=== PATIENT | male | born 1985 | race African-American/Black ===

== ENCOUNTER 2018-07-28 10:09 | Emergency (ER) | payer SELFPAY ==
[2018-07-28] MEDS ORDERED: SOD CHLORIDE 0.9% 1,000 ML IV (11:59)
[2018-07-28] MEDS ORDERED: ONDANSETRON 4 MG INJ IV (11:59)
== END 2018-07-28 12:48 | disposition home or self-care (01) ==
LOC: FTE 10:09
DX: J02.9 Acute pharyngitis, unspecified (principal); R19.7 Diarrhea, unspecified
CPT/HCPCS: 99283